=== PATIENT | female | born 1985 | race Caucasian/White ===

== ENCOUNTER 2021-08-29 19:47 | Inpatient (IN) | payer OTHER ==
[2021-08-29] MEDS ORDERED: NALOXONE HCL 0.4 MG/ML VIAL IVPUSH PRN (22:00)
[2021-08-29] MEDS ORDERED: FENTANYL/BUPIVACAINE/NS/PF - PCEA - 50 ML DISP.SYRIN EP SCH (22:00)
[2021-08-29] MEDS ORDERED: BUPIVACAINE HCL/PF 0.25% (2.5MG/ML) 10 ML VIAL ONE (22:06)
[2021-08-29] MEDS ORDERED: FENTANYL/BUPIVACAINE/NS/PF - PCEA - 50 ML DISP.SYRIN EP ONE (22:09)
[2021-08-30 00:31] VITALS: BMI 36.6
[2021-08-30] MEDS ORDERED: OXYTOCIN 20 UNITS in 0.9% NS 20 UNIT/1,000 ML INFUS.BAG IV ONE (01:07)
[2021-08-30] MEDS ORDERED: AMPICILLIN SODIUM 2 GM VIAL ONE (02:04)
[2021-08-30] MEDS ORDERED: AMPICILLIN - 2 GM in SODIUM CHLORIDE 100 ML IVPB ONE (02:05)
[2021-08-30] MEDS ORDERED: ELECTROLYTE-148 SOLN 1,000 ML IV SCH (02:15)
[2021-08-30] MEDS ORDERED: OXYTOCIN 30 UNITS in 0.9% NS 30 UNIT/500 ML INFUS.BAG IVPB SCH (02:15)
[2021-08-30] MEDS ORDERED: FENTANYL/BUPIVACAINE/NS/PF - PCEA - 50 ML DISP.SYRIN EP ONE (02:57)
[2021-08-30] MEDS ORDERED: AMPICILLIN - 1 GM in SODIUM CHLORIDE 100 ML IVPB SCH (06:05)
[2021-08-30] MEDS ORDERED: ACETAMINOPHEN 325 MG TABLET (FP) PO PRN (06:08)
[2021-08-30] MEDS ORDERED: METHYLERGONOVINE MALEATE 0.2 MG/1 ML AMP IM PRN (06:08)
[2021-08-30] MEDS ORDERED: oxyCODONE HCL 5 MG TABLET PO PRN (06:08)
[2021-08-30] MEDS ORDERED: BENZOCAINE 20% 57 GM BOTTLE TP PRN (06:08)
[2021-08-30] MEDS ORDERED: BISACODYL 10 MG SUPP.RECT RC PRN (06:08)
[2021-08-30] MEDS ORDERED: WITCH HAZEL 50% (TUCKS) 40 PAD/JAR PAD TP PRN (06:08)
[2021-08-30] MEDS ORDERED: BENZOCAINE 28 GM HEMORRHOIDAL OINTMENT TP PRN (06:08)
[2021-08-30] MEDS ORDERED: OXYTOCIN 20 UNITS in 0.9% NS 20 UNIT/1,000 ML INFUS.BAG IV SCH (06:15)
[2021-08-31] MEDS: IBUPROFEN 600 MG TABLET (FP) PO PRN (05:55)
[2021-08-31 09:17] LABS: BASO % 0.2 % (0-2.0); EOS % 0.9 % (0-4.5); HEMATOCRIT 32.9 % (32.4-45.2); HEMOGLOBIN 11.1 GM/dL (10.7-15.3); LYMPH % 13.4 % (8-40); MCH 29.7 pg (25.7-33.7); MCHC 33.6 g/dl (32.0-36.0); MEAN CELL VOLUME 88.3 fl (80-96); MONO % 3.9 % (3.8-10.2); NEUT % 81.6 % (42.8-82.8); PLATELET COUNT 190 10^3/uL (134-434); RBC 3.72 M/mm3 (3.60-5.2); RDW 14.3 % (11.6-15.6); WHITE BLOOD COUNT 13.7 K/mm3 (4.0-10.0)
[2021-08-31] MEDS ORDERED: SENNOSIDES/DOCUSATE COMBO (SENNA PLUS) TABLET (UD) PO PRN (22:00)
[2021-09-01] MEDS: IBUPROFEN 600 MG TABLET (FP) PO PRN (05:50)
[2021-09-01 11:26] VITALS: BP 104/66; PULSE 86; TEMP 97.7
== END 2021-09-01 13:06 | disposition home or self-care (01) | DRG 560 ==
LOC: JDEL 19:47 → JLDR 21:20 → J3W 08-30 09:00
PROVIDERS: ADMIT Obstetrics & Gynecology; ATTEND Obstetrics & Gynecology
PROC: 0HQ9XZZ Repair Perineum Skin, External Approach (ICD-10-PCS; principal; 2021-08-30)
PROC: 10E0XZZ Delivery of Products of Conception, External Approach (ICD-10-PCS; 2021-08-30)
DX: O48.0 Post-term pregnancy (principal); O70.0 First degree perineal laceration during delivery; Z3A.40 40 weeks gestation of pregnancy; Z37.0 Single live birth
CPT/HCPCS: 36415; 59025; 59409; 80048; 85025; 85610; 85730; 86780; 86850; 86900; 86901; C9803-CS; U0003; U0005

== ENCOUNTER 2023-11-14 07:30 | Inpatient (IN) | payer BC ==
[2023-11-14 09:06] LABS: BASO % 0.5 % (0-2.0); EOS % 1.8 % (0-4.5); HEMATOCRIT 39.3 % (32.4-45.2); HEMOGLOBIN 13.6 GM/dL (10.7-15.3); LYMPH % 15.6 % (8-40); MCH 30.2 pg (25.7-33.7); MCHC 34.6 g/dl (32.0-36.0); MEAN CELL VOLUME 87.2 fl (80-96); MEAN PLT VOLUME 9.8 fl (7.5-11.1); NEUT % 75.1 % (42.8-82.8); PLATELET COUNT 214 10^3/uL (134-434); RBC 4.51 M/mm3 (3.60-5.2); RDW 14.9 % (11.6-15.6); WHITE BLOOD COUNT 11.2 K/mm3 (4.0-10.0)
[2023-11-14 09:10] LABS: INR 0.87 (0.83-1.09); PROTHROMBIN TIME (PATIENT) 10.1 SEC (9.7-13.0)
[2023-11-14 09:13] LABS: ACTIVATED PTT 25.1 SECONDS (25.2-36.5)
[2023-11-14 09:24] LABS: POTASSIUM 3.6 mmol/L (3.5-5.1)
[2023-11-14 09:26] LABS: BLOOD UREA NITROGEN 9.2 mg/dL (7-18); CALCIUM 8.8 mg/dL (8.5-10.1)
[2023-11-14 09:30] LABS: CREATININE 0.6 mg/dL (0.55-1.3)
[2023-11-14] MEDS: ELECTROLYTE-148 SOLN 1,000 ML IV SCH (09:45)
[2023-11-14] MEDS: OXYTOCIN 30 UNITS in 0.9% NS 30 UNIT/500 ML INFUS.BAG IVPB SCH (10:00)
[2023-11-14] MEDS ORDERED: OXYTOCIN 30 UNITS in 0.9% NS 30 UNIT/500 ML INFUS.BAG IVPB ONE (10:00)
[2023-11-14 10:42] VITALS: BMI 37.8
[2023-11-14] MEDS ORDERED: FENTANYL/BUPIVACAINE/NS/PF - PCEA - 50 ML DISP.SYRIN EP ONE ×2 (15:07→19:54)
[2023-11-14] MEDS: FENTANYL/BUPIVACAINE/NS/PF - PCEA - 50 ML DISP.SYRIN EP SCH (15:20)
[2023-11-14] MEDS ORDERED: NALOXONE HCL 0.4 MG/ML VIAL IVPUSH PRN (15:36)
[2023-11-14] MEDS: CITRIC ACID/SODIUM CITRATE 30 ML UNIT-DOSE CUP PO ONE (20:18)
[2023-11-14] MEDS ORDERED: LIDOCAINE HCL 1% PRESERVATIVE FREE - 30ML VIAL ONE (22:41)
[2023-11-14] MEDS ORDERED: OXYTOCIN 20 UNITS in 0.9% NS 20 UNIT/1,000 ML INFUS.BAG IV ONE (22:41)
[2023-11-14] MEDS: OXYTOCIN 20 UNITS in 0.9% NS 20 UNIT/1,000 ML INFUS.BAG IV SCH (23:08)
[2023-11-14] MEDS ORDERED: oxyCODONE HCL 5 MG TABLET PO PRN (23:15)
[2023-11-14] MEDS ORDERED: BISACODYL 10 MG SUPP.RECT RC PRN (23:15)
[2023-11-14] MEDS ORDERED: METHYLERGONOVINE MALEATE 0.2 MG/1 ML AMP IM PRN (23:15)
[2023-11-14] MEDS ORDERED: BENZOCAINE 20% 57 GM BOTTLE TP PRN (23:15)
[2023-11-14] MEDS ORDERED: WITCH HAZEL 50% (TUCKS) 40 PAD/JAR PAD TP PRN (23:15)
[2023-11-14] MEDS ORDERED: BENZOCAINE 28 GM HEMORRHOIDAL OINTMENT TP PRN (23:15)
[2023-11-14 23:40] LABS: CORD BASE EXCESS -2.2 mmol/L (0-2); CORD HCO3 23.4 mmHg (20-29); CORD PCO2 42.7 mmHg (30-78); CORD pH 7.356 (7.14-7.44)
[2023-11-14 23:41] LABS: CORD HCO3 27.1 mmHg (20-29); CORD PCO2 68.2 mmHg (30-78); CORD pH 7.217 (7.14-7.44)
[2023-11-15 01:00] VITALS: RESP 18
[2023-11-15 07:24] LABS: BASO % 0.2 % (0-2.0); EOS % 0.6 % (0-4.5); HEMATOCRIT 34.6 % (32.4-45.2); HEMOGLOBIN 11.7 GM/dL (10.7-15.3); LYMPH % 10.6 % (8-40); MCH 29.8 pg (25.7-33.7); MCHC 33.7 g/dl (32.0-36.0); MEAN CELL VOLUME 88.4 fl (80-96); MEAN PLT VOLUME 10.1 fl (7.5-11.1); MONO % 5.8 % (3.8-10.2); NEUT % 82.8 % (42.8-82.8); PLATELET COUNT 188 10^3/uL (134-434); RBC 3.92 M/mm3 (3.60-5.2); RDW 14.3 % (11.6-15.6); WHITE BLOOD COUNT 18.7 K/mm3 (4.0-10.0)
[2023-11-15] MEDS: PRENATAL VITAMINS W/ FOLIC ACID TABLET (FP) PO SCH (09:40)
[2023-11-15] MEDS: IBUPROFEN 600 MG TABLET (FP) PO PRN (19:05)
[2023-11-15] MEDS: ACETAMINOPHEN 325 MG TABLET (FP) PO PRN (21:43)
[2023-11-15] MEDS ORDERED: SENNOSIDES/DOCUSATE COMBO (SENNA PLUS) TABLET (UD) PO PRN (22:00)
[2023-11-16 08:54] VITALS: BP 107/68; PULSE 79; TEMP 98
[2023-11-17 11:12] LABS: POC NITRAZINE POS
== END 2023-11-16 12:49 | disposition home or self-care (01) | DRG 807 ==
LOC: JLDR 07:30 → J3W 11-15 01:54
PROVIDERS: ADMIT Obstetrics & Gynecology; ATTEND Obstetrics & Gynecology
PROC: 10E0XZZ Delivery of Products of Conception, External Approach (ICD-10-PCS; principal; 2023-11-14)
DX: O48.0 Post-term pregnancy (principal); Z37.0 Single live birth; Z3A.40 40 weeks gestation of pregnancy; O69.81X0 Labor and delivery complicated by cord around neck, without compression, not applicable or unspecified
CPT/HCPCS: 36415; 36600; 59409; 80048; 82803; 83986-QW; 85025; 85610; 85730; 86780; 86850; 86900; 86901